=== PATIENT | male | born 1950 | race Native Hawaiian/Other Pacific Islander ===

== ENCOUNTER 2020-10-26 08:29 | Outpatient (CLI) | payer OTHER | END 2020-10-26 18:54 | disposition home or self-care (01) | LOC: LABW 08:29 | PROVIDERS: ATTEND Internal Medicine Rheumatology | DX: M06.4 Inflammatory polyarthropathy (principal); R70.0 Elevated erythrocyte sedimentation rate | CPT/HCPCS: 36415; 84550; 85651; 86038; 86140; 86200; 86430 ==

== ENCOUNTER 2021-03-13 08:30 | Outpatient (CLI) | payer OTHER | END 2021-03-13 21:16 | disposition home or self-care (01) | LOC: US 08:30 | PROVIDERS: ATTEND Nurse Practitioner | DX: I71.4 Abdominal aortic aneurysm, without rupture (principal) ==

== ENCOUNTER 2021-11-06 08:33 | Outpatient (CLI) | payer OTHER | END 2021-11-06 19:41 | disposition home or self-care (01) | LOC: US 08:33 | PROVIDERS: ATTEND Registered Nurse | DX: I71.4 Abdominal aortic aneurysm, without rupture (principal) ==

== ENCOUNTER 2022-06-11 09:09 | Outpatient (CLI) | payer OTHER | END 2022-06-11 19:19 | disposition home or self-care (01) | LOC: US 09:09 | PROVIDERS: ATTEND Surgery | DX: I71.4 Abdominal aortic aneurysm, without rupture (principal) ==

== ENCOUNTER 2022-07-28 11:27 | Emergency (ER) | payer OTHER ==
[~2022-07-28] VITALS: Ht 175.3 cm; Wt 92.1 kg
[2022-07-28 12:15] LABS: PLATELET COUNT 165 K/uL (142-355)
[2022-07-28 12:24] LABS: POTASSIUM 4.8 mmol/L (3.6-5.2)
[2022-07-28 13:18] VITALS: BP 137/89; TEMP 97.9
== END 2022-07-28 13:18 | disposition home or self-care (01) ==
LOC: ED 11:27
PROVIDERS: Family Medicine
DX: E86.0 Dehydration (principal); N20.0 Calculus of kidney; N28.9 Disorder of kidney and ureter, unspecified
CPT/HCPCS: 80053; 81000; 82150; 83690; 84484; 85027; 93005; 99283

== ENCOUNTER 2022-08-27 09:26 | Outpatient (CLI) | payer OTHER | END 2022-08-27 19:10 | disposition home or self-care (01) | LOC: RESP 09:26 | PROVIDERS: ATTEND Nurse Practitioner Family | DX: M47.815 Spondylosis without myelopathy or radiculopathy, thoracolumbar region (principal); R79.82 Elevated C-reactive protein (CRP); Z79.891 Long term (current) use of opiate analgesic; Z79.899 Other long term (current) drug therapy | CPT/HCPCS: 82565; 84520 ==

== ENCOUNTER 2023-07-13 02:28 | Emergency (ER) | payer OTHER ==
[~2023-07-13] VITALS: Ht 175.3 cm; Wt 92.1 kg
[~2023-07-13 02:28] MED LIST: B-121000 MC2 OR; CYCL10TA35 PO; GLIP10TA55 PO; ISOS30TA17 PO; OMEPRAZOLE20 M1 OR; SERT100T PO; SLO-NIACIN500 MG OR; ZIPR80CA PO; [UNRECOGNIZED DRUG - OTHER] OR
[2023-07-13 03:26] LABS: PLATELET COUNT 224 K/uL (142-355)
[2023-07-13 03:28] LABS: POTASSIUM 4.6 mmol/L (3.6-5.2)
[2023-07-13 04:25] VITALS: BP 105/58; TEMP 100.5
== END 2023-07-13 04:25 | disposition short-term general hospital (02) ==
LOC: ED 02:28
PROVIDERS: Family Medicine
DX: U07.1 COVID-19 (principal); I48.91 Unspecified atrial fibrillation
CPT/HCPCS: 80053; 85027; 93005; 94660; 96374; 96375; 99285; J1100; J2060; J3490